=== PATIENT | female | born 1945 | race Caucasian/White ===

== ENCOUNTER 2020-05-21 20:49 | Inpatient (IN) | payer MEDICARE ==
[2020-05-21] MEDS ORDERED: SODIUM CHLORIDE 0.9% 500 ML 500 ML IV STA (21:36)
--- NOTE | 2020-05-21 21:36 | ED ---
General Adult HPI - General Chief complaint: Weakness Stated complaint: Dehydration Time Seen by Provider: 05/21/20 21:21 Source: patient Mode of arrival: wheelchair Limitations: no limitations - History of Present Illness Initial comments: Dictation was produced using [employer] dictation software. please excuse any grammatical, word or spelling errors. This patient was cared for during a federal and state declared state of emergency secondary to Covid 19 Chief Complaint: 74-year-old female past medically history of thyroid disease, a sthma and arthritis presents with generalized weakness. History of Present Illness: Patient 74-year-old female she is a poor historian she presents with her good friend. She states she's been feeling weak for the last 2-3 days per she had one episode of nonbilious nonbloody vomiting. Patient states that she does have some dysuria and urinary hesitancy. Denies any fever, chills or night sweats. She has no pain complaints. She does not have any shortness of breath The ROS documented in this emergency department record has been reviewed and confirmed by me. Those systems with pertinent positive or negative responses have been documented in the HPI. All other systems are other negative and/or noncontributory. PHYSICAL EXAM: General Impression: Alert and oriented x3, not in acute distress HEENT: Normocephalic atraumatic, extra-ocular movements intact, pupils equal and reactive to light bilaterally, mucous membranes moist. Cardiovascular: Heart regular rate and rhythm Chest: Able to complete full sentences, no retractions, no tachypnea Abdomen: abdomen soft, non-tender, non-distended, no organomegaly Musculoskeletal: Pulses present and equal in all extremities, no peripheral edema Motor: no focal deficits noted Neurological: CN II-XII grossly intact, no focal motor or sensory deficits noted Skin: Intact with no visualized rashes Psych: Normal affect and mood ED course: 74-year-old female presents with chief complaint of generalized weakness. Signs upon arrival shows heart rate of 103, rest of vital signs within acceptable limits. Laboratory evaluation obtained. Mild leukocytosis of 15.2, platelets of 466. Sodium is critically low at 114. She does have a bicarb of 14 and a gap of 18. Magnesium is 1.4. Patient has had one vomiting episode however she does not have intractable vomiting or any evidence of lobar loss. She does not take any diuretics. She'll have any liver disease or renal failure. Says weakness patient is relatively asymptomatic. Patient given sodium chloride for sodium repletion. Case was discussed with Vera silva except patient's Behalf of ONEAL Jackson. I Did Discuss Case with Dr. Liao in the Intensive Care Unit. He Request That I Start 3% Saline at 20 ML an Hour with Sodium Recheck in 1-2 Hours. He is Willing to Accept Patient to the ICU. Medications were reviewed. There is no clear reason for patient to be hyponatremic. She does appear to be well perfused she's not showing any signs of kidney injury. She does not appear to have an obvious pseudohyponatremia. EKG interpretation: Ventricular rate 97, normal sinus rhythm,. Interval 150, QRS 78, QTC 429. No ID prolongation, no QTC prolongation, no ST or T-wave changes noted. . Overall, this EKG is unremarkable - Related Data Home Medications Medication Instructions Recorded Confirmed Fluticasone Propionate [Flovent 2 puff INHALATION RT-DAILY 05/21/20 05/21/20 Hfa 110 mcg] Levothyroxine Sodium [Synthroid] 137 mcg PO DAILY 05/21/20 05/21/20 Omeprazole 20 mg PO BID 05/21/20 05/21/20 Ondansetron Odt [Zofran Odt] 8 mg PO Q8H PRN 05/21/20 05/21/20 Simvastatin 10 mg PO HS 05/21/20 05/21/20 Allergies Allergy/AdvReac Type Severity Reaction Status Date / Time Penicillins Allergy Rash/Hives Verified 05/21/20 22:13 Review of Systems ROS Statement: Those systems with pertinent positive or pertinent negative responses have been documented in the HPI. ROS Other: All systems not noted in ROS Statement are negative. Past Medical History Past Medical History: Asthma, Hyperlipidemia, Osteoarthritis (OA), Thyroid Disorder History of Any Multi-Drug Resistant Organisms: None Reported Past Surgical History: Tonsillectomy Past Psychological History: No Psychological Hx Reported Smoking Status: Former smoker Past Alcohol Use History: Occasional Past Drug Use History: None Reported General Exam Limitations: no limitations Course Vital Signs 05/21/20 21:12 Temperature 98.0 F Pulse Rate 103 H Respiratory 16 Rate Blood Pressure 125/84 O2 Sat by Pulse 98 Oximetry Medical Decision Making - Lab Data Result diagrams: 05/21/20 22:11 05/21/20 22:11 Lab Results 05/21/20 05/21/20 Range/Units 22:11 22:11 WBC 15.2 H (3.8-10.6) k/uL RBC 5.24 (3.80-5.40) m/uL Hgb 14.7 (11.4-16.0) gm/dL Hct 43.3 (34.0-46.0) % MCV 82.6 (80.0-100.0) fL MCH 28.0 (25.0-35.0) pg MCHC 33.8 (31.0-37.0) g/dL RDW 12.1 (11.5-15.5) % Plt Count 466 H (150-450) k/uL Neutrophils % 66 % Lymphocytes % 14 % Monocytes % 11 % Eosinophils % 5 % Basophils % 1 % Neutrophils # 10.0 H (1.3-7.7) k/uL Lymphocytes # 2.2 (1.0-4.8) k/uL Monocytes # 1.7 H (0-1.0) k/uL Eosinophils # 0.8 H (0-0.7) k/uL Basophils # 0.1 (0-0.2) k/uL Sodium 114 L* (137-145) mmol/L Potassium 5.0 (3.5-5.1) mmol/L Chloride 82 L (98-107) mmol/L Carbon Dioxide 14 L (22-30) mmol/L Anion Gap 18 mmol/L BUN 16 (7-17) mg/dL Creatinine 0.57 (0.52-1.04) mg/dL Est GFR (CKD-EPI)AfAm >90 (>60 ml/min/1.73 sqM) Est GFR (CKD-EPI)NonAf >90 (>60 ml/min/1.73 sqM) Glucose 109 H (74-99) mg/dL Calcium 11.2 H (8.4-10.2) mg/dL Magnesium 1.4 L (1.6-2.3) mg/dL Total Bilirubin 1.1 (0.2-1.3) mg/dL AST 41 H (14-36) U/L ALT 34 (4-34) U/L Alkaline Phosphatase 76 (38-126) U/L Total Protein 7.9 (6.3-8.2) g/dL Albumin 4.9 (3.5-5.0) g/dL Disposition Clinical Impression: Hyponatremia Disposition: ADMITTED IP TO THIS [facility] Condition: Critical Referrals: Nonstaff,Physician [REFERRING] - 1-2 days Decision Time: 23:24
[2020-05-21 22:37] LABS: Basophils # (A) 0.1 k/uL (0-0.2); Basophils % (A) 1 %; Eosinophils # (A) 0.8 k/uL (0-0.7); Eosinophils % (A) 5 %; HCT 43.3 % (34.0-46.0); HGB 14.7 gm/dL (11.4-16.0); Lymphocytes # (A) 2.2 k/uL (1.0-4.8); Lymphocytes % (A) 14 %; MCHC 33.8 g/dL (31.0-37.0); MCV 82.6 fL (80.0-100.0); Mean Platelet Volume 8.5; Monocytes # (A) 1.7 k/uL (0-1.0); Monocytes % (A) 11 %; Neutrophils % (A) 66 %; Platelet Count 466 k/uL (150-450); RBC 5.24 m/uL (3.80-5.40); RDW 12.1 % (11.5-15.5); WBC 15.2 k/uL (3.8-10.6)
[2020-05-21 22:38] LABS: ALT 34 U/L (4-34); AST 41 U/L (14-36); African American GFR (CKD) >90 (>60 ml/min/1.73 sqM); Albumin 4.9 g/dL (3.5-5.0); Alkaline Phosphatase 76 U/L (38-126); Anion Gap 18 mmol/L; Blood Urea Nitrogen 16 mg/dL (7-17); Calcium 11.2 mg/dL (8.4-10.2); Carbon Dioxide 14 mmol/L (22-30); Chloride 82 mmol/L (98-107); Glucose 109 mg/dL (74-99); Magnesium 1.4 mg/dL (1.6-2.3); Non-African American GFR(CKD) >90 (>60 ml/min/1.73 sqM); Total Bilirubin 1.1 mg/dL (0.2-1.3); Total Protein 7.9 g/dL (6.3-8.2)
[2020-05-21 22:56] LABS: Sodium 114 mmol/L (137-145)
[2020-05-21] MEDS ORDERED: SODIUM CHLORIDE 0.9% 1,000 ML IV STA (23:03)
[2020-05-21] MEDS ORDERED: NALOXONE 0.4 MG/ML 1 ML VIAL IV PRN (23:20)
[2020-05-21] MEDS ORDERED: SODIUM CHLORIDE 3%(HYPERTONIC) 500 ML IV SCH (23:30)
[2020-05-22] MEDS: SODIUM CHLORIDE 0.9% 1,000 ML IV SCH ×2 (00:07→01:53)
[2020-05-22 00:13] LABS: VBG PH 7.28 (7.31-7.41)
[2020-05-22 01:36] LABS: Glucose,Whole Blood 97 mg/dL (75-99)
[2020-05-22 01:42] LABS: African American GFR (CKD) >90 (>60 ml/min/1.73 sqM); Anion Gap 15 mmol/L; Blood Urea Nitrogen 15 mg/dL (7-17); Calcium 10.3 mg/dL (8.4-10.2); Carbon Dioxide 17 mmol/L (22-30); Chloride 83 mmol/L (98-107); Glucose 91 mg/dL (74-99); Non-African American GFR(CKD) >90 (>60 ml/min/1.73 sqM)
[2020-05-22 01:52] LABS: Potassium 5.1 mmol/L (3.5-5.1); Sodium 115 mmol/L (137-145)
[2020-05-22 02:38] LABS: Appearance,Urine Clear (Clear); Bacteria,Urine Rare /hpf; Bilirubin,Urine Negative (Negative); Blood,Urine Negative (Negative); Color,Urine Yellow; Glucose,Urine (UA) Negative (Negative); Ketones,Urine 4+ (Negative); Leukocyte Esterase,Urine Small (Negative); Mucus,Urine Rare /hpf; Nitrite,Urine Negative (Negative); Protein,Urine Negative (Negative); RBC,Urine 1 /hpf (0-5); Specific Gravity,Urine 1.016 (1.001-1.035); Urobilinogen,Urine <2.0 mg/dL (<2.0); WBC,Urine 7 /hpf (0-5)
[2020-05-22 05:56] LABS: African American GFR (CKD) >90 (>60 ml/min/1.73 sqM); Anion Gap 16 mmol/L; Blood Urea Nitrogen 12 mg/dL (7-17); Calcium 10.2 mg/dL (8.4-10.2); Carbon Dioxide 15 mmol/L (22-30); Chloride 85 mmol/L (98-107); Glucose 86 mg/dL (74-99); Magnesium 1.4 mg/dL (1.6-2.3); Non-African American GFR(CKD) >90 (>60 ml/min/1.73 sqM); Potassium 4.7 mmol/L (3.5-5.1)
[2020-05-22 06:10] LABS: Sodium 116 mmol/L (137-145)
[2020-05-22] MEDS ORDERED: Magnesium Replacement Protocol 1 EACH MISC MISCELLANE PRN (06:24)
[2020-05-22] MEDS: MAGNESIUM SULFATE-D5W PMX 1 GM in DEXTROSE/WATER 1 100ML.BAG IVPB SCH ×3 (06:58→09:24)
[2020-05-22 09:22] LABS: HCT 40.8 % (34.0-46.0); HGB 13.3 gm/dL (11.4-16.0); MCH 28.2 pg (25.0-35.0); MCHC 32.7 g/dL (31.0-37.0); MCV 86.2 fL (80.0-100.0); Mean Platelet Volume 8.1; Platelet Count 287 k/uL (150-450); RBC 4.73 m/uL (3.80-5.40); RDW 12.2 % (11.5-15.5); WBC 10.5 k/uL (3.8-10.6)
[2020-05-22 09:37] LABS: African American GFR (CKD) >90 (>60 ml/min/1.73 sqM); Anion Gap 15 mmol/L; Blood Urea Nitrogen 11 mg/dL (7-17); Calcium 9.6 mg/dL (8.4-10.2); Carbon Dioxide 15 mmol/L (22-30); Chloride 87 mmol/L (98-107); Glucose 106 mg/dL (74-99); Non-African American GFR(CKD) >90 (>60 ml/min/1.73 sqM); Potassium 4.9 mmol/L (3.5-5.1)
[2020-05-22 10:26] LABS: Sodium 117 mmol/L (137-145)
--- NOTE | 2020-05-22 10:49 | XR ---
EXAMINATION TYPE: XR chest 1V DATE OF EXAM: 05/22/2020 COMPARISON: NONE HISTORY: 74-year-old female hyponatremia. TECHNIQUE: Single frontal view of the chest is obtained. FINDINGS: Heart normal size. Aorta and pulmonary vasculature within normal limits. No consolidation or pleural effusion. IMPRESSION: No acute process.
--- NOTE | 2020-05-22 11:12 | P.CNPUL ---
History of Present Illness Consult date: 05/22/20 Requesting physician: Demetrius Pabon Reason for consult: other (Hyponatremia) Chief complaint: Weakness History of present illness: This is a 74-year-old female with history of hypothyroidism, on adequate replacement therapy, history of COPD, [id number] smoking history, quit smoking 3 years back. Patient is also known to have history of degenerative joint disease, has been on Mobic 15 mg daily until a week ago. Over the last 2 weeks, patient has been complaining of weakness and fatigue. Patient presented to the ER, and she was noted to have profound hyponatremia with a sodium of 114. P atient denies any weight loss, denies any fever or chills, denies any major concern show symptoms except for weakness. Denies any cough wheezing shortness of breath or hemoptysis. Denies any chest pain, denies any nausea vomiting or diarrhea. Denies any dysuria frequency or urgency. Patient never had a previous history of hyponatremia. No history of underlying malignancy. Chest x-ray on admission was normal. Patient was placed on 3% saline overnight, and her sodium came up to 117, 3 mEq in the last 8 hours. Hence I kept her on 3% saline, and it was increased from 20 mL/h to 40 mL per hour. Patient denies being on any diuretics, and denies any history to suggest any fluid losses. La bs including serum cortisol, serum osmolality, urine sodium and osmolality are pending. Review of Systems Constitutional: Weakness fatigue malaise, no fever no chills no weight loss. HEENT: Negative. Cardiac: Negative. Pulmonary: Negative. GI: Negative. Genitourinary: Negative. Endocrine:: Denies any heat or cold intolerance. Neurologic: Denies any headache blurred vision or dizziness. Musculoskeletal: Weakness Hematologic: No clotting bleeding or bruising Psychiatric: No symptoms of active depression. Skin: No rashes and no pruritus. Lymphatics: No lymphadenopathy. Past Medical History Past Medical History: Asthma, COPD, Hyperlipidemia, Osteoarthritis (OA), Thyroid Disorder Additional Past Medical History / Comment(s): wet macular degeneration History of Any Multi-Drug Resistant Organisms: None Reported Past Surgical History: Tonsillectomy Past Anesthesia/Blood Transfusion Reactions: No Reported Reaction Additional Past Anesthesia/Blood Transfusion Reaction / Comment(s): Pt. has never recieve blood products Past Psychological History: No Psychological Hx Reported Smoking Status: Former smoker Past Alcohol Use History: Occasional Additional Past Alcohol Use History / Comment(s): has two drinks of beer or wine once a week Past Drug Use History: None Reported Medications and Allergies Home Medications Medication Instructions Recorded Confirmed Type Fluticasone Propionate [Flovent 2 puff INHALATION RT-DAILY 05/21/20 05/21/20 History Hfa 110 mcg] Levothyroxine Sodium [Synthroid] 137 mcg PO DAILY 05/21/20 05/21/20 History Omeprazole 20 mg PO BID 05/21/20 05/21/20 History Ondansetron Odt [Zofran Odt] 8 mg PO Q8H PRN 05/21/20 05/21/20 History Simvastatin 10 mg PO HS 05/21/20 05/21/20 History Meloxicam 15 mg PO DAILY 05/22/20 05/22/20 History Allergies Allergy/AdvReac Type Severity Reaction Status Date / Time Penicillins Allergy Rash/Hives Verified 05/21/20 22:13 Physical Exam Vitals: Vital Signs Temp Pulse Pulse Resp BP BP BP 05/22/20 10:00 92 92 20 122/62 122/62 05/22/20 09:00 89 22 115/62 05/22/20 08:00 98.1 F 103 H 19 117/61 05/22/20 07:00 95 20 107/62 05/22/20 06:00 105 H 22 112/80 05/22/20 05:00 98 18 121/59 05/22/20 04:00 98.2 F 99 15 123/60 05/22/20 03:00 98 19 126/58 05/22/20 02:03 98 F 97 20 133/67 05/22/20 02:00 98 22 130/65 05/22/20 01:31 98 F 105 H 28 H 133/67 05/22/20 01:25 97.9 F 89 18 121/74 05/21/20 23:33 98.2 F 96 16 140/81 05/21/20 21:12 98.0 F 103 H 16 125/84 Pulse Ox 05/22/20 10:00 96 05/22/20 09:00 95 05/22/20 08:00 94 L 05/22/20 07:00 98 05/22/20 06:00 98 05/22/20 05:00 99 05/22/20 04:00 98 05/22/20 03:00 99 05/22/20 02:03 05/22/20 02:00 100 05/22/20 01:31 100 05/22/20 01:25 99 05/21/20 23:33 100 05/21/20 21:12 98 Intake and Output 05/21/20 05/22/20 05/22/20 22:59 06:59 14:59 Intake Total 200 335 Output Total 710 245 Balance -510 90 Intake: IV 200 335 Magnesium Sulfate-D5w Pmx 200 1 gm In Dextrose/Water 1 100ml.bag @ 100 mls/hr IVPB Q1H [facility] Rx#: [id number] Sodium Chloride 0.9% 1, 100 55 000 ml @ 20 mls/hr IV . Q24H [facility] Rx#:[id number] Sodium Chloride 3%( 100 80 Hypertonic) 500 ml @ 40 mls/hr IV .[id number] [facility] Rx #:[id number] Output: Urine 710 245 Other: Voiding Method Indwelling Catheter Indwelling Catheter Weight 54.613 kg 55.5 kg 55.5 kg Physical Exam: Revealed 74-year-old female, in no distress. Slow to respond, pleasant. Head: Atraumatic, normocephalic. HEENT:[Neck is supple.] [No neck masses.] [No thyromegaly.] [No JVD.] PERRLA, EOMI, no icterus. Chest: [Clear throughout, no crackles, no rhonchi, no wheezes.] Cardiac Exam: [Normal S1 and S2, no S3 gallop, no murmur.] Abdomen: [Soft, nontender, no megaly, no rebound, no guarding, normal bowel sounds.] Extremities: [No clubbing, no edema, no cyanosis.] Neurological Exam: [No focal neurologic deficit.] Patient is a bit slow to respond, memory seems to be slightly compromised. Otherwise no focal deficits. Psychiatric: Normal mood, blunt affect, normal mental status examination but slow. Skin: No rashes. Lymphatics: No cervical or supraclavicular lymphadenopathy. Musculoskeletal no limitation in range of motion no deformities. Results - Laboratory Findings CBC and BMP: 05/22/20 09:17 05/22/20 09:17 Abnormal lab findings: Abnormal Labs 05/21/20 05/21/20 05/22/20 22:11 22:11 00:04 WBC 15.2 H Plt Count 466 H Neutrophils # 10.0 H Monocytes # 1.7 H Eosinophils # 0.8 H VBG pH 7.28 L VBG HCO3 19 L Sodium 114 L* Chloride 82 L Carbon Dioxide 14 L Creatinine Glucose 109 H Calcium 11.2 H Magnesium 1.4 L AST 41 H Urine Ketones Ur Leukocyte Esterase Urine WBC Urine Bacteria Urine Mucus 05/22/20 05/22/20 05/22/20 01:15 02:00 05:14 WBC Plt Count Neutrophils # Monocytes # Eosinophils # VBG pH VBG HCO3 Sodium 115 L* 116 L* Chloride 83 L 85 L Carbon Dioxide 17 L 15 L Creatinine 0.51 L 0.49 L Glucose Calcium 10.3 H Magnesium 1.4 L AST Urine Ketones 4+ H Ur Leukocyte Esterase Small H Urine WBC 7 H Urine Bacteria Rare H Urine Mucus Rare H 05/22/20 09:17 WBC Plt Count Neutrophils # Monocytes # Eosinophils # VBG pH VBG HCO3 Sodium 117 L* Chloride 87 L Carbon Dioxide 15 L Creatinine 0.44 L Glucose 106 H Calcium Magnesium AST Urine Ketones Ur Leukocyte Esterase Urine WBC Urine Bacteria Urine Mucus - Diagnostic Findings Chest x-ray: image reviewed (Chest x-ray showed no evidence of active disease.) Assessment and Plan Assessment: Impression: Profound hyponatremia, exact etiology is not clear, workup is in progress. Could be Mobic related, but clinically this is not very common History of COPD, presently asymptomatic. history of hypothyroidism, however the patient has normal TSH. History of degenerative joint disease. History of dyslipidemia. Recommendation: Continue 3% saline at 40 mL per hour until her serum sodium above 121 then switch patient to 0.9 normal saline at 75 mL per hour. Monitor serum sodium every 4 hours. Make sure correction is about 0.5 mEq per hour. Resume home meds, continue to hold Mobic. Check urine sodium and urine osmolality, serum cortisol, and serum osmolality. Based on response to treatment and pending laboratory studies, further recommendations will follow. Continue to monitor the patient in the ICU for the next 24 hours We'll continue to follow.
[2020-05-22] MEDS ORDERED: ONDANSETRON ODT 8 MG TAB.RAPDIS PO PRN (11:15)
[2020-05-22] MEDS: LEVOTHYROXINE 137 MCG TAB PO SCH (13:09)
[2020-05-22 13:53] LABS: African American GFR (CKD) >90 (>60 ml/min/1.73 sqM); Anion Gap 12 mmol/L; Blood Urea Nitrogen 8 mg/dL (7-17); Calcium 9.4 mg/dL (8.4-10.2); Carbon Dioxide 18 mmol/L (22-30); Chloride 89 mmol/L (98-107); Glucose 96 mg/dL (74-99); Non-African American GFR(CKD) >90 (>60 ml/min/1.73 sqM); Potassium 4.3 mmol/L (3.5-5.1)
[2020-05-22 14:22] LABS: Sodium 119 mmol/L (137-145)
--- NOTE | 2020-05-22 14:41 | P.NPCON ---
History of Present Illness - Reason for Consult Consult date: 05/22/20 hyponatremia - Chief Complaint Generalized weakness - History of Present Illness 74-year-old white lady coming to the hospital with the above complaints. Denies any history of sodium problems in the past. On admission serum sodium was 115. She was given normal saline. She was also given 500 ML's of 3%. Sodium stable around 119. Denies any active cancers, hydrochlorothiazide use or malignancy. Admits drinking a lot of free water at home. Review of Systems Constitutional: Reports as per HPI Past Medical History Past Medical History: Asthma, COPD, Hyperlipidemia, Osteoarthritis (OA), Thyroid Disorder Additional Past Medical History / Comment(s): wet macular degeneration History of Any Multi-Drug Resistant Organisms: None Reported Past Surgical History: Tonsillectomy Past Anesthesia/Blood Transfusion Reactions: No Reported Reaction Additional Past Anesthesia/Blood Transfusion Reaction / Comment(s): Pt. has never recieve blood products Past Psychological History: No Psychological Hx Reported Smoking Status: Former smoker Past Alcohol Use History: Occasional Additional Past Alcohol Use History / Comment(s): has two drinks of beer or wine once a week Past Drug Use History: None Reported Medications and Allergies Home Medications Medication Instructions Recorded Confirmed Type Fluticasone Propionate [Flovent 2 puff INHALATION RT-DAILY 05/21/20 05/21/20 History Hfa 110 mcg] Levothyroxine Sodium [Synthroid] 137 mcg PO DAILY 05/21/20 05/21/20 History Omeprazole 20 mg PO BID 05/21/20 05/21/20 History Ondansetron Odt [Zofran Odt] 8 mg PO Q8H PRN 05/21/20 05/21/20 History Simvastatin 10 mg PO HS 05/21/20 05/21/20 History Meloxicam 15 mg PO DAILY 05/22/20 05/22/20 History Allergies Allergy/AdvReac Type Severity Reaction Status Date / Time Penicillins Allergy Rash/Hives Verified 05/21/20 22:13 Physical Exam Vitals: Vital Signs Temp Pulse Pulse Resp BP BP BP 05/22/20 13:00 99 27 H 107/82 05/22/20 12:00 97.8 F 94 28 H 113/61 05/22/20 11:00 103 H 20 120/71 05/22/20 10:00 92 92 20 122/62 122/62 05/22/20 09:00 89 22 115/62 05/22/20 08:00 98.1 F 103 H 19 117/61 05/22/20 07:00 95 20 107/62 05/22/20 06:00 105 H 22 112/80 05/22/20 05:00 98 18 121/59 05/22/20 04:00 98.2 F 99 15 123/60 05/22/20 03:00 98 19 126/58 05/22/20 02:03 98 F 97 20 133/67 05/22/20 02:00 98 22 130/65 05/22/20 01:31 98 F 105 H 28 H 133/67 05/22/20 01:25 97.9 F 89 18 121/74 05/21/20 23:33 98.2 F 96 16 140/81 05/21/20 21:12 98.0 F 103 H 16 125/84 Pulse Ox 05/22/20 13:00 95 05/22/20 12:00 95 05/22/20 11:00 94 L 05/22/20 10:00 96 05/22/20 09:00 95 05/22/20 08:00 94 L 05/22/20 07:00 98 05/22/20 06:00 98 05/22/20 05:00 99 05/22/20 04:00 98 05/22/20 03:00 99 05/22/20 02:03 05/22/20 02:00 100 05/22/20 01:31 100 05/22/20 01:25 99 05/21/20 23:33 100 05/21/20 21:12 98 Intake and Output 05/21/20 05/22/20 05/22/20 22:59 06:59 14:59 Intake Total 200 500 Output Total 710 375 Balance -510 125 Intake: IV 200 500 Magnesium Sulfate-D5w Pmx 200 1 gm In Dextrose/Water 1 100ml.bag @ 100 mls/hr IVPB Q1H [facility] Rx#: [id number] Sodium Chloride 0.9% 1, 100 100 000 ml @ 20 mls/hr IV . 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 #2 normal renal function #3 generalized weakness secondary to hyponatremia Plan: #1 sodium improved from 114-119 today. Goal is 121 till 10 pm tonight. #2 fluid restriction of 1200 ML's per day #3 add salt tablets 1 g twice a day #4 monitor him sodium every 4 hours. If serum sodium drops, restart 3% hypertonic saline 25 ML's an hour
[2020-05-22 17:42] LABS: African American GFR (CKD) >90 (>60 ml/min/1.73 sqM); Anion Gap 12 mmol/L; Blood Urea Nitrogen 7 mg/dL (7-17); Calcium 9.5 mg/dL (8.4-10.2); Carbon Dioxide 19 mmol/L (22-30); Chloride 89 mmol/L (98-107); Glucose 88 mg/dL (74-99); Non-African American GFR(CKD) >90 (>60 ml/min/1.73 sqM); Potassium 4.5 mmol/L (3.5-5.1); Sodium 120 mmol/L (137-145)
--- NOTE | 2020-05-22 18:09 | P.HPIM ---
History of Present Illness This is a pleasant 74 years old female with past medical history of asthma, hyperlipidemia, osteoarthritis, hypothyroidism. Presents because of feeling unwell and tired for a few days without headache or dizziness. Associated with some confusion, which happened overnight and patient was trying to get out of bed, could not use the commode and she could not use it and so Norwood catheter was placed, also sitter was placed at bedside. Patient is awake and alert this morning and she is oriented to place and time but not PERSON. No headache, no weakness or numbness. No blurred vision. Also she denies chest pain, no abdominal pain, no sweating As per . patient has been vomiting for a few days and she contributes that to the medication meloxicam patient denies smoking, alcohol or illicit drug Vitals stable. Venous blood gas showing pH of 7.2, pCO2 41 which is normal and low bicarb of 19. Sodium 1 admission was 114, this morning is 116. CBC showed mild leukocytosis of 15.2 K, rest of the MP and liver enzymes were unremarkable. TSH is normal at 0.8. UA is negative for infection. EKG showing normal sinus rhythm at 97. In the emergency room she received 1.5 L of normal saline, she was admitted to the ICU when she was started on hypertonic 3% saline at 20 mL/h Review of Systems CONSTITUTIONAL: No fever, no malaise, no fatigue. HEENT: No recent visual problems or hearing problems. Denied any sore throat. CARDIOVASCULAR: No orthopnea, PND, no palpitations, no syncope. PULMONARY: No shortness of breath, no cough, no hemoptysis. GASTROINTESTINAL: No diarrhea, no nausea, no vomiting, no abdominal pain. Normoactive bowel sounds. NEUROLOGICAL: No headaches, no weakness, no numbness. HEMATOLOGICAL: Denies any bleeding or petechiae. GENITOURINARY: Denies any burning micturition, frequency, or urgency. MUSCULOSKELETAL/RHEUMATOLOGICAL: Denies any joint pain, swelling, or any muscle pain. ENDOCRINE: Denies any polyuria or polydipsia. Past Medical History Past Medical History: Asthma, Hyperlipidemia, Osteoarthritis (OA), Thyroid Disorder History of Any Multi-Drug Resistant Organisms: None Reported Past Surgical History: Tonsillectomy Past Anesthesia/Blood Transfusion Reactions: No Reported Reaction Additional Past Anesthesia/Blood Transfusion Reaction / Comment(s): Pt. has never recieve blood products Past Psychological History: No Psychological Hx Reported Smoking Status: Former smoker Past Alcohol Use History: Occasional Past Drug Use History: None Reported Medications and Allergies Home Medications Medication Instructions Recorded Confirmed Type Fluticasone Propionate [Flovent 2 puff INHALATION RT-DAILY 05/21/20 05/21/20 History Hfa 110 mcg] Levothyroxine Sodium [Synthroid] 137 mcg PO DAILY 05/21/20 05/21/20 History Omeprazole 20 mg PO BID 05/21/20 05/21/20 History Ondansetron Odt [Zofran Odt] 8 mg PO Q8H PRN 05/21/20 05/21/20 History Simvastatin 10 mg PO HS 05/21/20 05/21/20 History Meloxicam 15 mg PO DAILY 05/22/20 05/22/20 History Allergies Allergy/AdvReac Type Severity Reaction Status Date / Time Penicillins Allergy Rash/Hives Verified 05/21/20 22:13 Physical Exam Vitals: Vital Signs Temp Pulse Pulse Resp BP BP Pulse Ox 05/22/20 07:00 95 20 107/62 98 05/22/20 06:00 105 H 22 112/80 98 05/22/20 05:00 98 18 121/59 99 05/22/20 04:00 98.2 F 99 15 123/60 98 05/22/20 03:00 98 19 126/58 99 05/22/20 02:03 98 F 97 20 133/67 05/22/20 02:00 98 22 130/65 100 05/22/20 01:31 98 F 105 H 28 H 133/67 100 05/22/20 01:25 97.9 F 89 18 121/74 99 05/21/20 23:33 98.2 F 96 16 140/81 100 05/21/20 21:12 98.0 F 103 H 16 125/84 98 Intake and Output 05/21/20 05/22/20 05/22/20 22:59 06:59 14:59 Intake Total 200 140 Output Total 710 60 Balance -510 80 Intake: IV 200 140 Magnesium Sulfate-D5w Pmx 100 1 gm In Dextrose/Water 1 100ml.bag @ 100 mls/hr IVPB Q1H [facility] Rx#: [id number] Sodium Chloride 0.9% 1, 100 20 000 ml @ 20 mls/hr IV . Q24H [facility] Rx#:[id number] Sodium Chloride 3%( 100 20 Hypertonic) 500 ml @ 20 mls/hr IV .Q24H [facility] Rx#: [id number] Output: Urine 710 60 Other: Voiding Method Indwelling Catheter Weight 54.613 kg 55.5 kg GENERAL: The patient is alert and oriented x3, not in any acute distress. Well developed, well nourished. HEENT: Pupils are round and equally reacting to light. EOMI. No scleral icterus. No conjunctival pallor. Normocephalic, atraumatic. No pharyngeal erythema. No thyromegaly. CARDIOVASCULAR: S1 and S2 present. No murmurs, rubs, or gallops. PULMONARY: Chest is clear to auscultation, no wheezing or crackles. ABDOMEN: Soft, nontender, nondistended, normoactive bowel sounds. No palpable organomegaly. MUSCULOSKELETAL: No joint swelling or deformity. EXTREMITIES: No cyanosis, clubbing, or pedal edema. NEUROLOGICAL: Gross neurological examination did not reveal any focal deficits. SKIN: No rashes. No petechiae Results CBC & Chem 7: 05/22/20 09:17 05/22/20 16:56 Labs: Abnormal Lab Results - Last 24 Hours (Table) 05/21/20 05/21/20 05/22/20 Range/Units 22:11 22:11 00:04 WBC 15.2 H (3.8-10.6) k/uL Plt Count 466 H (150-450) k/uL Neutrophils # 10.0 H (1.3-7.7) k/uL Monocytes # 1.7 H (0-1.0) k/uL Eosinophils # 0.8 H (0-0.7) k/uL VBG pH 7.28 L (7.31-7.41) VBG HCO3 19 L (24-28) mmol/L Sodium 114 L* (137-145) mmol/L Chloride 82 L (98-107) mmol/L Carbon Dioxide 14 L (22-30) mmol/L Creatinine (0.52-1.04) mg/dL Glucose 109 H (74-99) mg/dL Calcium 11.2 H (8.4-10.2) mg/dL Magnesium 1.4 L (1.6-2.3) mg/dL AST 41 H (14-36) U/L Urine Ketones (Negative) Ur Leukocyte Esterase (Negative) Urine WBC (0-5) /hpf Urine Bacteria (None) /hpf Urine Mucus (None) /hpf 05/22/20 05/22/20 05/22/20 Range/Units 01:15 02:00 05:14 WBC (3.8-10.6) k/uL Plt Count (150-450) k/uL Neutrophils # (1.3-7.7) k/uL Monocytes # (0-1.0) k/uL Eosinophils # (0-0.7) k/uL VBG pH (7.31-7.41) VBG HCO3 (24-28) mmol/L Sodium 115 L* 116 L* (137-145) mmol/L Chloride 83 L 85 L (98-107) mmol/L Carbon Dioxide 17 L 15 L (22-30) mmol/L Creatinine 0.51 L 0.49 L (0.52-1.04) mg/dL Glucose (74-99) mg/dL Calcium 10.3 H (8.4-10.2) mg/dL Magnesium 1.4 L (1.6-2.3) mg/dL AST (14-36) U/L Urine Ketones 4+ H (Negative) Ur Leukocyte Esterase Small H (Negative) Urine WBC 7 H (0-5) /hpf Urine Bacteria Rare H (None) /hpf Urine Mucus Rare H (None) /hpf Thrombosis Risk Factor Assmnt - Choose All That Apply Each Risk Factor Represents 2 Points: Age 61-74 years, Patient confined to bed Thrombosis Risk Factor Assessment Total Risk Factor Score: 4 Thrombosis Risk Factor Assessment Level: Moderate Risk Assessment and Plan Assessment: Severe Hyponatremia, rule out SIADH Hyperlipidemia Hypothyroidism Osteoarthritis Chronic asthma, no active tissue Plan: This is a pleasant 74 years old female who presents with hyponatremia. Patient already received 1.5 L of normal saline in the emergency room, and started on hypertonic saline , we'll keep with her sodium closely. Follow-up recommendation by survey research associate and critical care team. Labs and medication were reviewed.. Continue same treatment. Continue with symptomatic treatment. Resume home medication. Monitor lytes and vitals. DVT and GI prophylaxis. Further recommendations of the clinical course of the patient DVT prophylaxis: Subcutaneous heparin GI Prophylaxis: Pepcid PT/OT: Pending Prognosis is guarded
[2020-05-22] MEDS: SODIUM CHLORIDE TAB 1 GM TAB PO SCH (20:40)
[2020-05-22 22:40] LABS: African American GFR (CKD) >90 (>60 ml/min/1.73 sqM); Anion Gap 11 mmol/L; Blood Urea Nitrogen 7 mg/dL (7-17); Calcium 9.3 mg/dL (8.4-10.2); Carbon Dioxide 18 mmol/L (22-30); Chloride 91 mmol/L (98-107); Glucose 96 mg/dL (74-99); Non-African American GFR(CKD) >90 (>60 ml/min/1.73 sqM); Sodium 120 mmol/L (137-145)
[2020-05-23] MEDS: PANTOPRAZOLE 40 MG TABLET PO SCH (06:35)
[2020-05-23] MEDS: LEVOTHYROXINE 137 MCG TAB PO SCH (06:35)
[2020-05-23 07:28] LABS: Magnesium 1.6 mg/dL (1.6-2.3)
[2020-05-23] MEDS: SODIUM CHLORIDE TAB 1 GM TAB PO SCH ×2 (07:58→20:28)
[2020-05-23] MEDS ORDERED: MAGNESIUM SULFATE-D5W PMX 1 GM in DEXTROSE/WATER 1 100ML.BAG IVPB ONE (08:26)
[2020-05-23] MEDS ORDERED: SODIUM CHLORIDE 0.9% 1,000 ML IV SCH (08:30)
--- NOTE | 2020-05-23 09:33 | P.PN ---
Subjective Progress Note Date: 05/23/20 Follow-up for hyponatremia. Feels better today. No nausea vomiting diarrhea. Objective - Vital Signs Vital signs: Vital Signs Temp 98.1 F 05/23/20 08:00 Pulse 92 05/23/20 08:00 Resp 15 05/23/20 08:00 BP 126/63 05/23/20 08:00 Pulse Ox 93 L 05/23/20 08:00 Intake & Output 05/22/20 05/23/20 05/23/20 18:59 06:59 18:59 Intake Total 870 200 Output Total 575 565 60 Balance 295 -365 -60 Weight 55.5 kg 53.8 kg Intake: IV 620 Magnesium Sulfate-D5w Pmx 200 1 gm In Dextrose/Water 1 100ml.bag @ 100 mls/hr IVPB Q1H [facility] Rx#: [id number] Sodium Chloride 0.9% 1, 140 000 ml @ 20 mls/hr IV . Q24H [facility] Rx#:[id number] Sodium Chloride 3%( 280 Hypertonic) 500 ml @ 25 mls/hr IV .Q20H [facility] Rx#: [id number] Oral 250 200 Output: Urine 575 565 60 Other: Voiding Method Indwelling Catheter Indwelling Catheter Indwelling Catheter - Exam No acute distress S1-S2 heard Lungs clear Abdomen soft No edema - Labs CBC & Chem 7: 05/22/20 09:17 05/23/20 06:52 Labs: Abnormal Lab Results - Last 24 Hours (Table) 05/22/20 05/22/20 05/22/20 Range/Units 05:17 09:17 13:24 Sodium 117 L* 119 L* (137-145) mmol/L Chloride 87 L 89 L (98-107) mmol/L Carbon Dioxide 15 L 18 L (22-30) mmol/L Creatinine 0.44 L 0.49 L (0.52-1.04) mg/dL Glucose 106 H (74-99) mg/dL Osmolality 240 L* (280-301) mosm/kg 05/22/20 05/22/20 05/23/20 Range/Units 16:56 22:03 02:30 Sodium 120 L 120 L 121 L (137-145) mmol/L Chloride 89 L 91 L (98-107) mmol/L Carbon Dioxide 19 L 18 L (22-30) mmol/L Creatinine 0.48 L 0.41 L (0.52-1.04) mg/dL Glucose (74-99) mg/dL Osmolality (280-301) mosm/kg 05/23/20 Range/Units 06:52 Sodium 124 L (137-145) mmol/L Chloride (98-107) mmol/L Carbon Dioxide (22-30) mmol/L Creatinine (0.52-1.04) mg/dL Glucose (74-99) mg/dL Osmolality (280-301) mosm/kg Assessment and Plan Assessment: #1 acute symptomatic hypotonic hyponatremia suspect secondary to SIADH. #2 normal renal function #3 generalized weakness secondary to hyponatremia Plan: #1 sodium improved to 121 today. Goal is 127 by tonight. #2 fluid restriction of 1200 ML's per day #3 continue with salt tablets 1 g twice a day and gave to 15 milligrams once. #4 monitor him sodium every 4 hours. #5 avoid normal saline or any hypotonic fluid as it decreases serum sodium.
[2020-05-23] MEDS ORDERED: TOLVAPTAN 15 MG 1/2 TABLET PO ONE (10:15)
--- NOTE | 2020-05-23 11:50 | P.PN ---
Subjective Progress Note Date: 05/23/20 Principal diagnosis: Severe hyponatremia This is a 74-year-old female with history of hypothyroidism, on adequate replacement therapy, history of COPD, [id number] smoking history, quit smoking 3 years back. Patient is also known to have history of degenerative joint disease, has been on Mobic 15 mg daily until a week ago. Over the last 2 weeks, patient has been complaining of weakness and fatigue. Patient presented to the ER, and she was noted to have profound hyponatremia with a sodium of 114. Patient denies any weight loss, denies any fever or chills, denies any major concern show symptoms except for weakness. Denies any cough wheezing shortness of breath or hemoptysis. Denies any chest pain, denies any nausea vomiting or diarrhea. Denies any dysuria frequency or urgency. Patient never had a previous history of hyponatremia. No history of underlying malignancy. Chest x-ray on admission was normal. Patient was placed on 3% saline overnight, and her sodium came up to 117, 3 mEq in the last 8 hours. Hence I kept her on 3% saline, and it was increased from 20 mL/h to 40 mL per hour. Patient denies being on any diuretics, and denies any history to suggest any fluid losses. Labs including serum cortisol, serum osmolality, urine sodium and osmolality are pending. Patient was reevaluated today on 05/23/20, she remains in the ICU, her sodium is up to 124. It basically corrected about 10 mEq over a period of 24 hours. Patient is feeling better, continues to have some weakness but improved. Magnesium is low at 1.6, and she received a 1 g of magnesium sulfate patient is feeling better and I plan to transfer the patient out of the ICU to a regular medical floor. Patient was placed on salt tablets by nephrology, and she is to be transferred to a regular medical floor today. Objective - Vital Signs Vital signs: Vital Signs Temp 97.3 F L 05/23/20 10:59 Pulse 99 05/23/20 10:59 Resp 18 05/23/20 10:59 BP 119/77 05/23/20 10:59 Pulse Ox 97 05/23/20 10:59 Intake & Output 05/22/20 05/23/20 05/23/20 18:59 06:59 18:59 Intake Total 870 200 140 Output Total 575 565 120 Balance 295 -365 20 Weight 55.5 kg 53.8 kg Intake: IV 620 Magnesium Sulfate-D5w Pmx 200 1 gm In Dextrose/Water 1 100ml.bag @ 100 mls/hr IVPB Q1H [facility] Rx#: [id number] Sodium Chloride 0.9% 1, 140 000 ml @ 20 mls/hr IV . Q24H [facility] Rx#:[id number] Sodium Chloride 3%( 280 Hypertonic) 500 ml @ 25 mls/hr IV .Q20H [facility] Rx#: [id number] Oral 250 200 140 Output: Urine 575 565 120 Other: Voiding Method Indwelling Catheter Indwelling Catheter Indwelling Catheter - Exam Physical Exam: Revealed 74-year-old female, in no distress. Head: Atraumatic, normocephalic. HEENT:[Neck is supple.] [No neck masses.] [No thyromegaly.] [No JVD.] PERRLA, EOMI, no icterus. Chest: [Clear throughout, no crackles, no rhonchi, no wheezes.] Cardiac Exam: [Normal S1 and S2, no S3 gallop, no murmur.] Abdomen: [Soft, nontender, no megaly, no rebound, no guarding, normal bowel sounds.] Extremities: [No clubbing, no edema, no cyanosis.] Neurological Exam: [No focal neurologic deficit.] Patient is a bit slow to respond, memory seems to be slightly compromised. Otherwise no focal deficits. Psychiatric: Normal mood, blunt affect, normal mental status examination Skin: No rashes and no areas of cellulitis Lymphatics: No cervical or supraclavicular lymphadenopathy. Musculoskeletal no limitation in range of motion no deformities. - Labs CBC & Chem 7: 05/22/20 09:17 05/23/20 10:41 Labs: Abnormal Lab Results - Last 24 Hours (Table) 05/22/20 05/22/20 05/22/20 Range/Units 13:24 16:56 22:03 Sodium 119 L* 120 L 120 L (137-145) mmol/L Chloride 89 L 89 L 91 L (98-107) mmol/L Carbon Dioxide 18 L 19 L 18 L (22-30) mmol/L Creatinine 0.49 L 0.48 L 0.41 L (0.52-1.04) mg/dL 05/23/20 05/23/20 05/23/20 Range/Units 02:30 06:52 10:41 Sodium 121 L 124 L 122 L (137-145) mmol/L Chloride (98-107) mmol/L Carbon Dioxide (22-30) mmol/L Creatinine (0.52-1.04) mg/dL Assessment and Plan Assessment: Impression: Profound hyponatremia, suspect SIADH or possibly medications induced hyponatremia. History of COPD, presently asymptomatic. history of hypothyroidism, however the patient has normal TSH. History of degenerative joint disease. History of dyslipidemia. Hypomagnesemia, recommended a gram of magnesium sulfate Recommendation: Patient is now off 3% saline, She could be placed on a trial of fluid restriction or if to be given any 0.9 normal saline, would have to be minimal. And continue to monitor sodium every 4 hours. Transfer patient out of the ICU to a regular medical floor. 1 g of magnesium sulfate was given We'll continue to follow. Time with Patient: Less than 30
[2020-05-23] MEDS: FLUTICASONE 110 MCG INHALER INHALATION SCH (12:52)
--- NOTE | 2020-05-23 16:27 | P.PN ---
Subjective This is a pleasant 74 years old female with past medical history of asthma, hyperlipidemia, osteoarthritis, hypothyroidism. Presents because of feeling unwell and tired for a few days without headache or dizziness. Associated with some confusion, which happened overnight and patient was trying to get out of bed, could not use the commode and she could not use it and so [place] catheter was placed, also sitter was placed at bedside. Patient is awake and alert this morning and she is oriented to place and time but not PERSON. No headache, no weakness or numbness. No blurred vision. Also she denies chest pain, no abdominal pain, no sweating As per . patient has been vomiting for a few days and she contributes that to the medication meloxicam patient denies smoking, alcohol or illicit drug Vitals stable. Venous blood gas showing pH of 7.2, pCO2 41 which is normal and low bicarb of 19. Sodium 1 admission was 114, this morning is 116. CBC showed mild leukocytosis of 15.2 K, rest of the MP and liver enzymes were unremarkable. TSH is normal at 0.8. UA is negative for infection. EKG showing normal sinus rhythm at 97. In the emergency room she received 1.5 L of normal saline, she was admitted to the ICU when she was started on hypertonic 3% saline at 20 mL/h 05/23/20 Today patient is awake and alert, she denies headache or dizziness, she just feels generally weak. No numbness or weakness, no seizure-like activity She is hemodynamically stable. Sodium is improving gradually, last 3 reading is 124, 122 and 125. Nephrology on the case as well as bone marrow/critical care team and patient was transferred to the general medical floor today. She status post 1 dose of Tolvaptan as per nephrology team Review of Systems CONSTITUTIONAL: No fever, no malaise, no fatigue. HEENT: No recent visual problems or hearing problems. Denied any sore throat. CARDIOVASCULAR: No orthopnea, PND, no palpitations, no syncope. PULMONARY: No shortness of breath, no cough, no hemoptysis. GASTROINTESTINAL: No diarrhea, no nausea, no vomiting, no abdominal pain. Normoactive bowel sounds. NEUROLOGICAL: No headaches, no weakness, no numbness. HEMATOLOGICAL: Denies any bleeding or petechiae. GENITOURINARY: Denies any burning micturition, frequency, or urgency. MUSCULOSKELETAL/RHEUMATOLOGICAL: Denies any joint pain, swelling, or any muscle pain. ENDOCRINE: Denies any polyuria or polydipsia. Objective - Vital Signs Vital signs: Vital Signs Temp 98.5 F 05/23/20 14:14 Pulse 101 H 05/23/20 14:14 Resp 16 05/23/20 14:14 BP 138/76 05/23/20 14:14 Pulse Ox 98 05/23/20 14:14 Intake & Output 05/22/20 05/23/20 05/23/20 18:59 06:59 18:59 Intake Total 870 200 140 Output Total 575 565 620 Balance 609 -793 -240 Weight 55.5 kg 53.8 kg Intake: IV 620 Magnesium Sulfate-D5w Pmx 200 1 gm In Dextrose/Water 1 100ml.bag @ 100 mls/hr IVPB Q1H [facility] Rx#: [id number] Sodium Chloride 0.9% 1, 140 000 ml @ 20 mls/hr IV . Q24H [facility] Rx#:[id number] Sodium Chloride 3%( 280 Hypertonic) 500 ml @ 25 mls/hr IV .Q20H [facility] Rx#: [id number] Oral 250 200 140 Output: Urine 575 565 620 Other: Voiding Method Indwelling Catheter Indwelling Catheter Indwelling Catheter - Exam GENERAL: The patient is alert and oriented x3, not in any acute distress. Well developed, well nourished. HEENT: Pupils are round and equally reacting to light. EOMI. No scleral icterus. No conjunctival pallor. Normocephalic, atraumatic. No pharyngeal erythema. No thyromegaly. CARDIOVASCULAR: S1 and S2 present. No murmurs, rubs, or gallops. PULMONARY: Chest is clear to auscultation, no wheezing or crackles. ABDOMEN: Soft, nontender, nondistended, normoactive bowel sounds. No palpable organomegaly. MUSCULOSKELETAL: No joint swelling or deformity. EXTREMITIES: No cyanosis, clubbing, or pedal edema. NEUROLOGICAL: Gross neurological examination did not reveal any focal deficits. SKIN: No rashes. no petechiae. - Labs CBC & Chem 7: 05/22/20 09:17 05/23/20 14:45 Labs: Abnormal Lab Results - Last 24 Hours (Table) 05/22/20 05/22/20 05/23/20 Range/Units 16:56 22:03 02:30 Sodium 120 L 120 L 121 L (137-145) mmol/L Chloride 89 L 91 L (98-107) mmol/L Carbon Dioxide 19 L 18 L (22-30) mmol/L Creatinine 0.48 L 0.41 L (0.52-1.04) mg/dL 05/23/20 05/23/20 05/23/20 Range/Units 06:52 10:41 14:45 Sodium 124 L 122 L 125 L (137-145) mmol/L Chloride (98-107) mmol/L Carbon Dioxide (22-30) mmol/L Creatinine (0.52-1.04) mg/dL Assessment and Plan Assessment: Severe Hyponatremia, rule out SIADH Hyperlipidemia Hypothyroidism Osteoarthritis Chronic asthma, no active tissue Plan: This is a pleasant 74 years old female who presents with hyponatremia. IV fluids were stopped and received tolvaotan as per nephrology team recommendation, we'll keep with her sodium closely. Follow-up recommendation by metal furniture polisher and critical care team. Labs and medication were reviewed.. Continue same treatment. Continue with symptomatic treatment. Resume home medication. Monitor lytes and vitals. DVT and GI prophylaxis. Further recommendations of the clinical course of the patient DVT prophylaxis: Subcutaneous heparin GI Prophylaxis: Pepcid PT/OT: Pending Prognosis is guarded
[2020-05-23] MEDS: FAMOTIDINE 20 MG/2 ML VIAL IV SCH (20:28)
[2020-05-23] MEDS: HEPARIN SODIUM,PORCINE 5,000 UNIT/ML 1 ML VIAL SQ SCH (20:29)
[2020-05-24] MEDS: HEPARIN SODIUM,PORCINE 5,000 UNIT/ML 1 ML VIAL SQ SCH ×2 (07:42→19:39)
[2020-05-24] MEDS: PANTOPRAZOLE 40 MG TABLET PO SCH (07:42)
[2020-05-24] MEDS: FAMOTIDINE 20 MG/2 ML VIAL IV SCH ×2 (07:43→19:39)
[2020-05-24] MEDS: FLUTICASONE 110 MCG INHALER INHALATION SCH (07:53)
[2020-05-24] MEDS: SODIUM CHLORIDE TAB 1 GM TAB PO SCH ×2 (08:00→20:00)
[2020-05-24] MEDS: LEVOTHYROXINE 137 MCG TAB PO SCH (10:16)
[2020-05-24] MEDS ORDERED: TOLVAPTAN 15 MG 1/2 TABLET PO ONE (11:50)
--- NOTE | 2020-05-24 13:01 | P.PN ---
Subjective Progress Note Date: 05/24/20 Follow-up for hyponatremia. Feels better today. No nausea vomiting diarrhea. Objective - Vital Signs Vital signs: Vital Signs Temp 98.1 F 05/24/20 07:00 Pulse 92 05/24/20 08:00 Resp 16 05/24/20 08:00 BP 110/64 05/24/20 07:00 Pulse Ox 97 05/24/20 07:00 Intake & Output 05/23/20 05/24/20 05/24/20 18:59 06:59 18:59 Intake Total 380 150 Output Total 1320 650 Balance -940 -500 Intake: Intake, IV Titration 150 Amount Sodium Chloride 0.9% 1, 150 000 ml @ 50 mls/hr IV . Q20H [facility] Rx#:[id number] Oral 380 Output: Urine 1320 650 Other: Voiding Method Indwelling Catheter Indwelling Catheter Indwelling Catheter - Exam No acute distress S1-S2 heard Lungs clear Abdomen soft No edema - Labs CBC & Chem 7: 05/22/20 09:17 05/24/20 10:03 Labs: Abnormal Lab Results - Last 24 Hours (Table) 05/23/20 05/23/20 05/23/20 Range/Units 14:45 19:03 23:07 Sodium 125 L 126 L 130 L (137-145) mmol/L 05/24/20 05/24/20 05/24/20 Range/Units 02:35 06:54 10:03 Sodium 129 L 129 L 128 L (137-145) mmol/L Assessment and Plan Assessment: #1 acute symptomatic hypotonic hyponatremia suspect secondary to SIADH. #2 normal renal function #3 generalized weakness secondary to hyponatremia Plan: #1 sodium improved to 127 today. Status post Samsca 15 mg. #2 fluid restriction of 1200 ML's per day #3 continue with salt tablets 1 g twice a day and give 1 more dose of Samsca today. #4 repeat labs in the morning
--- NOTE | 2020-05-24 21:50 | P.PN ---
Subjective This is a pleasant 74 years old female with past medical history of asthma, hyperlipidemia, osteoarthritis, hypothyroidism. Presents because of feeling unwell and tired for a few days without headache or dizziness. Associated with some confusion, which happened overnight and patient was trying to get out of bed, could not use the commode and she could not use it and so Norwood catheter was placed, also sitter was placed at bedside. Patient is awake and alert this morning and she is oriented to place and time but not PERSON. No headache, no weakness or numbness. No blurred vision. Also she denies chest pain, no abdominal pain, no sweating As per . patient has been vomiting for a few days and she contributes that to the medication meloxicam patient denies smoking, alcohol or illicit drug Vitals stable. Venous blood gas showing pH of 7.2, pCO2 41 which is normal and low bicarb of 19. Sodium 1 admission was 114, this morning is 116. CBC showed mild leukocytosis of 15.2 K, rest of the MP and liver enzymes were unremarkable. TSH is normal at 0.8. UA is negative for infection. EKG showing normal sinus rhythm at 97. In the emergency room she received 1.5 L of normal saline, she was admitted to the ICU when she was started on hypertonic 3% saline at 20 mL/h 05/23/20 Today patient is awake and alert, she denies headache or dizziness, she just feels generally weak. No numbness or weakness, no seizure-like activity She is hemodynamically stable. Sodium is improving gradually, last 3 reading is 124, 122 and 125. Nephrology on the case as well as bone marrow/critical care team and patient was transferred to the general medical floor today. She status post 1 dose of Tolvaptan as per nephrology team 05/24/20 Patient is awake and alert, she still still weak oversewed is improved 128 Nephrology on the case and recommended repeat labs in the morning Ask for PT/OT evaluation Possible discharge in 24-48 hours and keep improvement Objective - Vital Signs Vital signs: Vital Signs Temp 98.2 F 05/24/20 14:37 Pulse 92 05/24/20 16:00 Resp 16 05/24/20 16:00 BP 112/68 05/24/20 14:37 Pulse Ox 98 05/24/20 14:37 Intake & Output 05/23/20 05/24/20 05/24/20 18:59 06:59 18:59 Intake Total 380 150 550 Output Total 1320 650 Balance -940 -500 550 Intake: Intake, IV Titration 150 Amount Sodium Chloride 0.9% 1, 150 000 ml @ 50 mls/hr IV . Q20H [facility] Rx#:[id number] Oral 380 550 Output: Urine 1320 650 Other: Voiding Method Indwelling Catheter Indwelling Catheter Indwelling Catheter - Exam GENERAL: The patient is alert and oriented x3, not in any acute distress. Well developed, well nourished. HEENT: Pupils are round and equally reacting to light. EOMI. No scleral icterus. No conjunctival pallor. Normocephalic, atraumatic. No pharyngeal erythema. No thyromegaly. CARDIOVASCULAR: S1 and S2 present. No murmurs, rubs, or gallops. PULMONARY: Chest is clear to auscultation, no wheezing or crackles. ABDOMEN: Soft, nontender, nondistended, normoactive bowel sounds. No palpable organomegaly. MUSCULOSKELETAL: No joint swelling or deformity. EXTREMITIES: No cyanosis, clubbing, or pedal edema. NEUROLOGICAL: Gross neurological examination did not reveal any focal deficits. SKIN: No rashes. no petechiae. - Labs CBC & Chem 7: 05/22/20 09:17 05/24/20 10:03 Labs: Abnormal Lab Results - Last 24 Hours (Table) 05/23/20 05/23/20 05/24/20 Range/Units 19:03 23:07 02:35 Sodium 126 L 130 L 129 L (137-145) mmol/L 05/24/20 05/24/20 Range/Units 06:54 10:03 Sodium 129 L 128 L (137-145) mmol/L Assessment and Plan Assessment: Severe Hyponatremia, rule out SIADH Hyperlipidemia Hypothyroidism Osteoarthritis Chronic asthma, no active tissue Plan: This is a pleasant 74 years old female who presents with hyponatremia. IV fluids were stopped and received tolvaotan as per nephrology team recommendation, we'll keep with her sodium closely. Follow-up recommendation by territory sales consultant and critical care team. Labs and medication were reviewed.. Continue same treatment. Continue with symptomatic treatment. Resume home medication. Monitor lytes and vitals. DVT and GI prophylaxis. Further recommendations of the clinical course of the patient DVT prophylaxis: Subcutaneous heparin GI Prophylaxis: Pepcid PT/OT: Pending Prognosis is guarded
[2020-05-25] MEDS: LEVOTHYROXINE 137 MCG TAB PO SCH (05:42)
[2020-05-25] MEDS: FLUTICASONE 110 MCG INHALER INHALATION SCH (07:32)
[2020-05-25 08:25] VITALS: RESP 18
[2020-05-25] MEDS: FAMOTIDINE 20 MG/2 ML VIAL IV SCH (08:54)
[2020-05-25] MEDS: PANTOPRAZOLE 40 MG TABLET PO SCH (08:55)
[2020-05-25] MEDS: HEPARIN SODIUM,PORCINE 5,000 UNIT/ML 1 ML VIAL SQ SCH ×2 (08:55→20:30)
[2020-05-25] MEDS: SODIUM CHLORIDE TAB 1 GM TAB PO SCH ×2 (08:55→20:31)
[2020-05-25 09:28] LABS: Chloride 96 mmol/L (98-107)
[2020-05-25 09:30] LABS: African American GFR (CKD) >90 (>60 ml/min/1.73 sqM); Anion Gap 12 mmol/L; Blood Urea Nitrogen 10 mg/dL (7-17); Calcium 9.7 mg/dL (8.4-10.2); Carbon Dioxide 20 mmol/L (22-30); Glucose 116 mg/dL (74-99); Non-African American GFR(CKD) >90 (>60 ml/min/1.73 sqM); Sodium 128 mmol/L (137-145)
--- NOTE | 2020-05-25 10:04 | P.PN ---
Subjective Patient is seen in follow-up for hyponatremia. She is maintained on salt tablets. Sodium level stable. Denies nausea or vomiting. Oral intake remains poor as food not tasting good. Vital signs are stable. General: The patient appeared well nourished and normally developed. HEENT: Head exam is unremarkable. Neck is without jugular venous distension. LUNGS: Lungs are clear to auscultation and percussion. Breath sounds decreased. HEART: Rate and Rhythm are regular. ABDOMEN: Soft, nontender. EXTREMITITES: No clubbing, cyanosis, or edema. Objective - Vital Signs Vital signs: Vital Signs Temp 98.6 F 05/25/20 07:32 Pulse 103 H 05/25/20 07:32 Resp 18 05/25/20 07:32 BP 125/71 05/25/20 07:32 Pulse Ox 97 05/25/20 07:32 Intake & Output 05/24/20 05/25/20 05/25/20 18:59 06:59 18:59 Intake Total 550 30 Output Total 400 Balance 550 -370 Intake: Oral 550 30 Output: Urine 400 Other: Voiding Method Indwelling Catheter Indwelling Catheter Indwelling Catheter - Labs CBC & Chem 7: 05/22/20 09:17 05/25/20 08:33 Labs: Abnormal Lab Results - Last 24 Hours (Table) 05/24/20 05/25/20 Range/Units 10:03 08:33 Sodium 128 L 128 L (137-145) mmol/L Chloride 96 L (98-107) mmol/L Carbon Dioxide 20 L (22-30) mmol/L Glucose 116 H (74-99) mg/dL Assessment and Plan Plan: Assessment: 1. Hyponatremia secondary to SIADH. Status post and a. Sodium level stable. Urine osmolality above 500. TSH normal. GFR at baseline. 2. Generalized weakness. 3. Metabolic acidosis, improving. Plan: 1200 mL fluid resection. Maintain salt tabs. Encourage oral intake, particularly protein. Add Lasix 20 mg orally once daily. Repeat electrolytes in the morning.
[2020-05-25] MEDS: FUROSEMIDE 20 MG TAB PO SCH (12:44)
[2020-05-26 04:28] VITALS: TEMP 98.2
[2020-05-26] MEDS: LEVOTHYROXINE 137 MCG TAB PO SCH (05:59)
[2020-05-26 06:57] LABS: Glucose,Whole Blood 120 mg/dL (75-99)
[2020-05-26 07:50] VITALS: BP 126/77
[2020-05-26] MEDS: HEPARIN SODIUM,PORCINE 5,000 UNIT/ML 1 ML VIAL SQ SCH (08:28)
[2020-05-26] MEDS: PANTOPRAZOLE 40 MG TABLET PO SCH (08:28)
[2020-05-26] MEDS: FUROSEMIDE 20 MG TAB PO SCH (08:28)
[2020-05-26] MEDS: SODIUM CHLORIDE TAB 1 GM TAB PO SCH (08:28)
[2020-05-26 08:43] LABS: Calcium 9.6 mg/dL (8.4-10.2); Magnesium 1.5 mg/dL (1.6-2.3); Potassium 3.9 mmol/L (3.5-5.1)
[2020-05-26] MEDS: FLUTICASONE 110 MCG INHALER INHALATION SCH (08:59)
[2020-05-26] MEDS ORDERED: Magnesium Replacement Protocol 1 EACH MISC MISCELLANE PRN (09:35)
[2020-05-26 09:39] VITALS: PULSE 92
--- NOTE | 2020-05-26 10:01 | P.PN ---
Subjective Patient is seen in follow-up for hyponatremia. She is maintained on salt tablets. Sodium level little better today. Denies nausea or vomiting. oral intake just fair. Vital signs are stable. General: The patient appeared well nourished and normally developed. HEENT: Head exam is unremarkable. Neck is without jugular venous distension. LUNGS: Lungs are clear to auscultation and percussion. Breath sounds decreased. HEART: Rate and Rhythm are regular. ABDOMEN: Soft, nontender. EXTREMITITES: No clubbing, cyanosis, or edema. Objective - Vital Signs Vital signs: Vital Signs Temp 98.2 F 05/26/20 07:00 Pulse 92 05/26/20 08:00 Resp 18 05/26/20 08:00 BP 126/77 05/26/20 07:00 Pulse Ox 96 05/26/20 07:00 Intake & Output 05/25/20 05/26/20 05/26/20 18:59 06:59 18:59 Output Total 750 Balance -750 Output: Urine 450 Uretheral (Norwood) 200 Post Void Residual 300 Other: Voiding Method Indwelling Catheter Toilet Toilet # Voids 1 2 - Labs CBC & Chem 7: 05/22/20 09:17 05/26/20 08:12 Labs: Abnormal Lab Results - Last 24 Hours (Table) 05/26/20 05/26/20 Range/Units 06:54 08:12 Sodium 129 L (137-145) mmol/L Chloride 88 L (98-107) mmol/L Glucose 135 H (74-99) mg/dL POC Glucose (mg/dL) 120 H (75-99) mg/dL Magnesium 1.5 L (1.6-2.3) mg/dL Assessment and Plan Plan: Assessment: 1. Hyponatremia secondary to SIADH. Status post samsca. Sodium level little better. Urine osmolality above 500. TSH normal. GFR at baseline. 2. Generalized weakness. 3. Metabolic acidosis, improving. 4. Hypomagnesemia from poor intake Tessy diuretics. Plan: 1200 mL fluid resection. Maintain salt tabs. Encourage oral intake, particularly protein. Lasix 20 mg orally once daily. replace magnesium. 2 g IV today. Add oral magnesium oxide upon discharge. Also add maintenance potassium supplementation. Repeat BMP and magnesium level to 3 days postdischarge. Follow up outpatient in 1 week.
[2020-05-26] MEDS ORDERED: POTASSIUM CHLORIDE ER 10 MEQ TAB.ER.PRT PO SCH (10:15)
[2020-05-26] MEDS ORDERED: MAGNESIUM SULFATE-D5W PMX 1 GM in DEXTROSE/WATER 1 100ML.BAG IVPB SCH (11:00)
[2020-05-26 11:16] LABS: Glucose,Whole Blood 96 mg/dL (75-99)
--- NOTE | 2020-05-27 00:26 | P.PN ---
Subjective This is a pleasant 74 years old female with past medical history of asthma, hyperlipidemia, osteoarthritis, hypothyroidism. Presents because of feeling unwell and tired for a few days without headache or dizziness. Associated with some confusion, which happened overnight and patient was trying to get out of bed, could not use the commode and she could not use it and so [place] catheter was placed, also sitter was placed at bedside. Patient is awake and alert this morning and she is oriented to place and time but not PERSON. No headache, no weakness or numbness. No blurred vision. Also she denies chest pain, no abdominal pain, no sweating As per . patient has been vomiting for a few days and she contributes that to the medication meloxicam patient denies smoking, alcohol or illicit drug Vitals stable. Venous blood gas showing pH of 7.2, pCO2 41 which is normal and low bicarb of 19. Sodium 1 admission was 114, this morning is 116. CBC showed mild leukocytosis of 15.2 K, rest of the MP and liver enzymes were unremarkable. TSH is normal at 0.8. UA is negative for infection. EKG showing normal sinus rhythm at 97. In the emergency room she received 1.5 L of normal saline, she was admitted to the ICU when she was started on hypertonic 3% saline at 20 mL/h 05/23/20 Today patient is awake and alert, she denies headache or dizziness, she just feels generally weak. No numbness or weakness, no seizure-like activity She is hemodynamically stable. Sodium is improving gradually, last 3 reading is 124, 122 and 125. Nephrology on the case as well as bone marrow/critical care team and patient was transferred to the general medical floor today. She status post 1 dose of Tolvaptan as per nephrology team 05/24/20 Patient is awake and alert, she still still weak oversewed is improved 128 Nephrology on the case and recommended repeat labs in the morning Ask for PT/OT evaluation Possible discharge in 24-48 hours and keep improvement 05/25/20 Patient weakness improving, sodium is 128 and stable Nephrology of the case If she keep improvement and sewed it was stable tomorrow then possible discharge if she got cleared by head butler Objective - Vital Signs Vital signs: Vital Signs Temp 98.0 F 05/25/20 15:08 Pulse 111 H 05/25/20 15:08 Resp 18 05/25/20 15:08 BP 128/85 05/25/20 15:08 Pulse Ox 96 05/25/20 15:08 Intake & Output 05/24/20 05/25/20 05/25/20 18:59 06:59 18:59 Intake Total 550 30 Output Total 400 500 Balance 550 -370 -500 Intake: Oral 550 30 Output: Urine 400 200 Uretheral ([place]) 200 Post Void Residual 300 Other: Voiding Method Indwelling Catheter Indwelling Catheter Indwelling Catheter - Exam GENERAL: The patient is alert and oriented x3, not in any acute distress. Well developed, well nourished. HEENT: Pupils are round and equally reacting to light. EOMI. No scleral icterus. No conjunctival pallor. Normocephalic, atraumatic. No pharyngeal erythema. No thyromegaly. CARDIOVASCULAR: S1 and S2 present. No murmurs, rubs, or gallops. PULMONARY: Chest is clear to auscultation, no wheezing or crackles. ABDOMEN: Soft, nontender, nondistended, normoactive bowel sounds. No palpable organomegaly. MUSCULOSKELETAL: No joint swelling or deformity. EXTREMITIES: No cyanosis, clubbing, or pedal edema. NEUROLOGICAL: Gross neurological examination did not reveal any focal deficits. SKIN: No rashes. no petechiae. - Labs CBC & Chem 7: 05/22/20 09:17 05/26/20 08:12 Labs: Abnormal Lab Results - Last 24 Hours (Table) 05/25/20 Range/Units 08:33 Sodium 128 L (137-145) mmol/L Chloride 96 L (98-107) mmol/L Carbon Dioxide 20 L (22-30) mmol/L Glucose 116 H (74-99) mg/dL Assessment and Plan Assessment: Severe Hyponatremia, rule out SIADH Hyperlipidemia Hypothyroidism Osteoarthritis Chronic asthma, no active tissue Plan: This is a pleasant 74 years old female who presents with hyponatremia. IV fluids were stopped and received tolvaotan as per nephrology team recommendation, we'll keep with her sodium closely. Follow-up recommendation by head butler and critical care team. Labs and medication were reviewed.. Continue same treatment. Continue with symptomatic treatment. Resume home medication. Monitor lytes and vitals. DVT and GI prophylaxis. Further recommendations of the clinical course of the patient DVT prophylaxis: Subcutaneous heparin GI Prophylaxis: Pepcid PT/OT: Pending Prognosis is guarded
--- NOTE | 2020-05-27 00:30 | P.DS ---
Providers Date of admission: 05/21/20 23:20 Attending physician: Demetrius Pabon Consults: 05/21/20 23:18 Consult Physician Routine Consulting Provider: Arabella Beard Consult Reason/Comments: hyponatremia Do you want consulting provider notified?: Yes 05/21/20 23:20 Consult Physician Stat Consulting Provider: Eleonora Liao Reason/Comments: icu patient Do you want consulting provider notified?: Already Contacted Primary care physician: Maco Rodrigez Hospital Course: Diagnoses: Severe Hyponatremia, on admission secondary to SIADH Hyperlipidemia Hypothyroidism Osteoarthritis Chronic asthma, no active tissue Hospital course: This is a pleasant 74 years old female with past medical history of asthma, hyperlipidemia, osteoarthritis, hypothyroidism. Presents because of feeling unwell and tired for a few days without headache or dizziness. On admission her sodium was as low as 114, patient was admitted to the ICU and she received normal saline and hypertonic saline at 3% with no significant improvement, pulmonary/critical care team and client finance analyst evaluated the patient,1 dose of Tolvaptan as per nephrology team , her sodium started improving gradually and she was placed on fluid restriction and provided with small dose of Lasix and salt tablets, sodium for the last 2-3 days was stable on [id number] and patient's symptoms of generalized weakness improved, no other symptoms or complication noticed On the day of discharge patient agrees to go home as she has no chest pain or dyspnea, no change in urine or bowel habits. No fever and no other symptoms Patient was cleared for discharge by client finance analyst Problems and management plan were discussed with the patient and he verbalized understanding and acceptance Patient was found stable and can be discharged home however he needs follow-up as an outpatient. Patient was instructed to follow up with PCP Dr. Stover within one week and she was instructed to follow up with client finance analyst Dr. Beard/Lawson in one week patient agrees. Staff tried to make appointment but the offices of, the patient for the appointments Gen: patient is a AAOx3, no distress CVS: S1-S2, RRR, no murmur Lungs: B/L CTA, no wheezing Abdomen: soft, no distention, no tenderness, positive bowel sounds Extremity: no leg edema or induration Time spent more than 35 minutes Patient Condition at Discharge: Critical Plan - Discharge Summary Discharge Rx Participant: Yes New Discharge Prescriptions: New Furosemide [Lasix] 20 mg PO DAILY #30 tab Magnesium Oxide [Mag-Ox] 400 mg PO DAILY 5 Days #5 tablet Sodium Chloride Tab 1 gm PO BID 30 Days #60 tab Continue Ondansetron Odt [Zofran ODT] 8 mg PO Q8H PRN PRN Reason: Nausea Omeprazole 20 mg PO BID Levothyroxine Sodium [Synthroid] 137 mcg PO DAILY Fluticasone Propionate [Flovent Hfa 110 mcg] 2 puff INHALATION RT-DAILY Simvastatin 10 mg PO HS Discontinued Meloxicam 15 mg PO DAILY Discharge Medication List Fluticasone Propionate [Flovent Hfa 110 mcg] 2 puff INHALATION RT-DAILY 05/21/20 [History] Levothyroxine Sodium [Synthroid] 137 mcg PO DAILY 05/21/20 [History] Omeprazole 20 mg PO BID 05/21/20 [History] Ondansetron Odt [Zofran ODT] 8 mg PO Q8H PRN 05/21/20 [History] Simvastatin 10 mg PO HS 05/21/20 [History] Furosemide [Lasix] 20 mg PO DAILY #30 tab 05/26/20 [Rx] Magnesium Oxide [Mag-Ox] 400 mg PO DAILY 5 Days #5 tablet 05/26/20 [Rx] Sodium Chloride Tab 1 gm PO BID 30 Days #60 tab 05/26/20 [Rx] Follow up Appointment(s)/Referral(s): Arabella Beard MD [STAFF PHYSICIAN] - 1 Week (office will call with appointment time) Maco Rodrigez MD [Primary Care Provider] - 1 Week (office line busy Please call to make appointment) Patient Instructions/Handouts: Hyponatremia (DC) Activity/Diet/Wound Care/Special Instructions: Fluid restriction 1200 ml/day Activity is limited until you see your doctor Discharge Disposition: HOME WITH HOME HEALTH SERVICES
== END 2020-05-26 15:31 | disposition home or self-care (01) | DRG 644 ==
LOC: EC 20:49 → 2SICU 23:20 → 4SSUR 05-23 11:11
PROVIDERS: ADMIT Hospitalist; ATTEND Hospitalist
DX: E22.2 Syndrome of inappropriate secretion of antidiuretic hormone (principal); E87.2 Acidosis; E78.5 Hyperlipidemia, unspecified; E03.9 Hypothyroidism, unspecified; E86.0 Dehydration; M19.90 Unspecified osteoarthritis, unspecified site; J44.9 Chronic obstructive pulmonary disease, unspecified; E83.42 Hypomagnesemia; Z79.1 Long term (current) use of non-steroidal anti-inflammatories (NSAID); Z79.51 Long term (current) use of inhaled steroids; Z79.890 Hormone replacement therapy; Z88.0 Allergy status to penicillin; Z90.89 Acquired absence of other organs; Z87.891 Personal history of nicotine dependence
CPT/HCPCS: 36415; 71045; 80048; 80053; 81001; 82533; 82803; 83605; 83735; 83930; 83935; 84295; 84300; 84443; 85025; 85027; 93005; 94640; 96360; 99285